=== PATIENT | male | born 1970 | race African-American/Black ===

== ENCOUNTER 2018-01-11 07:30 | Outpatient (CLI) | payer BC ==
[2018-01-11] MEDS ORDERED: Iopamidol 370 76% 100 ML VIAL ONE (09:00)
--- NOTE | 2018-01-11 09:54 | CT ---
CT OF THE CHEST WITH IV CONTRAST CT OF THE ABDOMEN WITH IV CONTRAST CT OF THE PELVIS WITH IV CONTRAST: Provided Clinical History: Carcinoma of colon. FINDINGS: No comparisons. The heart, pericardium, and great vessels demonstrate an unremarkable CT appearance. There is no evidence for thoracic lymph node enlargement. The airway appears patent and of normal eunice iber. The lungs are free of suspicious opacity. There is no pleural fluid or pneumothorax apparent. The liver, spleen, pancreas, kidneys, and adrenal glands demonstrate an unremarkable CT appearance. There is a conspicuous fat containing umbilical hernia. There is mass like soft tissue density seen within the region of the cecum, presumably reflecting the known carcinoma. There is a small lymph node at the medial margin of this portion of the colon. It i s not enlarge by size criteria but is suspicious by location. There is no bowel dilatation, inflammatory fat stranding or free air apparent. There is a very small amount of free intraperitoneal fluid, primarily within the pelvic cul-de-sac. Vascular calcifications are noted. The osseous structures demonstrate no concerning osteoblastic or osteolytic lesions. IMPRESSION: 1. Focal mass like soft tissue density within the cecum reflecting the known colonic carcinoma. Adjac ent mesenteric lymph node may reflect lymph node disease in this region. No evidence for metastasis. 2. Small amount of free intraperitoneal fluid, etiology and significance of which are uncertain. POS: [facility]
== END 2018-01-11 07:31 | disposition home or self-care (01) ==
LOC: SCSCT 07:30
PROVIDERS: ATTEND Internal Medicine Medical Oncology
DX: C18.9 Malignant neoplasm of colon, unspecified (principal); C61 Malignant neoplasm of prostate; R05 Cough
CPT/HCPCS: 71260; 74177

== ENCOUNTER 2018-01-12 13:15 | Inpatient (IN) | payer BC ==
[2018-01-12 13:40] VITALS: BMI 33.0
[2018-01-16] MEDS ORDERED: Lidocaine 1% (PF) 30 ML VIAL ONE (11:52)
[2018-01-16] MEDS ORDERED: Midazolam HCl 2 mg/2 ml Vial ONE (11:52)
[2018-01-16] MEDS ORDERED: Fentanyl 100 MCG/2 ML VIAL ONE ×2 (11:52→11:56)
[2018-01-16] MEDS ORDERED: HYDROmorphone 0.5 MG/0.5 ML SYRINGE ONE (11:57)
[2018-01-16] MEDS ORDERED: Dexamethasone 4 mg/ml Vial ONE (11:57)
[2018-01-16] MEDS ORDERED: cefOXitin 2 GM, Syringe 1 ML in Sterile Water 10 ML SLOW IVP SCH (12:00)
[2018-01-16] MEDS ORDERED: Ketorolac Tromethamine 30 MG/ML VIAL IVP SCH (12:00)
[2018-01-16] MEDS ORDERED: Acetaminophen 1,000 MG in Premix Bag 1 BAG IVPB SCH (12:00)
[2018-01-16] MEDS ORDERED: Ketorolac Tromethamine 30 MG/ML VIAL ONE (12:01)
[2018-01-16] MEDS ORDERED: Lidocaine 1% w/Epinephrine 1:100K 30 ML VIAL ONE (13:11)
[2018-01-16] MEDS ORDERED: Indocyanine Green 25 MG/10 ML VIAL ONE (13:11)
[2018-01-16] MEDS ORDERED: cefOXitin 2 GM VIAL ONE (14:57)
[2018-01-16] MEDS ORDERED: Bupivacaine HCl 0.5%/Epinephrine 1:200,000/PF 30 ml Vial ONE (15:29)
[2018-01-16] MEDS ORDERED: Ondansetron HCl/PF 4 MG/2 ML Vial ONE (16:04)
[2018-01-16] MEDS ORDERED: Glycopyrrolate 0.2 MG/ML 5 ML SYRINGE ONE (16:04)
[2018-01-16] MEDS ORDERED: PROPOFOL 200 MG/20 ML VIAL ONE (16:04)
[2018-01-16] MEDS ORDERED: Labetalol 100 MG/20 ML MDV ONE (16:04)
[2018-01-16] MEDS ORDERED: Dexamethasone 20 MG/5 ML VIAL ONE (16:04)
[2018-01-16] MEDS ORDERED: Lidocaine 1% PF 5 ML VIAL ONE (16:04)
[2018-01-16] MEDS ORDERED: Ondansetron HCl/PF 4 MG/2 ML Vial IVP PRN ×2 (16:58→17:34)
[2018-01-16] MEDS ORDERED: Promethazine HCl 25 MG/ML VIAL SLOW IVP PRN (16:58)
[2018-01-16] MEDS ORDERED: Morphine Sulfate 2 MG/ML SYRINGE SLOW IVP PRN (16:58)
[2018-01-16] MEDS ORDERED: Promethazine HCl 25 MG/ML VIAL IM PRN ×2 (16:58→17:34)
[2018-01-16] MEDS ORDERED: HYDROmorphone 2 MG/ML VIAL SLOW IVP PRN (16:58)
[2018-01-16] MEDS ORDERED: D5 1/2 NS w/20 mEq KCL 1,000 ML ONE (17:06)
[2018-01-16] MEDS ORDERED: hydrALAZINE 20 MG/ML VIAL SLOW IVP PRN (17:34)
[2018-01-16] MEDS: D5 1/2 NS w/20 mEq KCL 1,000 ML IV SCH (17:58)
[2018-01-16] MEDS: Ketorolac Tromethamine 30 MG/ML VIAL IVP SCH ×2 (18:26→23:37)
[2018-01-16] MEDS: Acetaminophen 1,000 MG in Premix Bag 1 BAG IVPB SCH ×2 (18:26→23:36)
[2018-01-16] MEDS: Famotidine/PF 20 mg/2ml Vial SLOW IVP SCH (20:57)
[2018-01-16] MEDS: Famotidine 20 MG TAB PO SCH (20:59)
--- NOTE | 2018-01-17 01:48 | OP ---
DATE OF OPERATION: 01/16/2018 PREOPERATIVE DIAGNOSIS: Right colon cancer. POSTOPERATIVE DIAGNOSIS: Right colon cancer. OPERATION PERFORMED: Robotic assisted right hemicolectomy. SURGEON: Aman Webb M.D. ANESTHESIA: General endotracheal. INDICATIONS: The patient is a 47-year-old black male. He was recently found to be anemic. Colonosc opy was performed revealing an invasive adenocarcinoma within his cecum. I recommended a robotic ass isted right hemicolectomy. He has undergone outpatient mechanical and antibiotic bowel prep. DESCRIPTION OF OPERATION: Informed consent was obtained. The patient was taken to the operating ivonne m where general endotracheal anesthesia was obtained with the patient in supine position. [place] cath eter was placed, abdomen was prepped with ChloraPrep and draped in sterile fashion. Throughout the case, he was maintained at a temperature in excess of 36 degrees centigrade. Local anesthetic was infiltrated and a left periumbilical incision was created through which a Veress needle was passed into the peritoneal cavity. Pneumoperitoneum was established using carbon dioxide up to a pressure of 15 mmHg. An 11 mm trocar port site was passed through this same incision. [place] roscopic camera was passed through this port. The patient was noted to have adhesions to his anterio r abdominal wall at the site of his prior prostate surgery incision and his umbilical hernia. A 12 mm left subcostal port was placed as well as an 8 mm left suprapubic port. Finally, an 11 mm le ft upper lateral assist port was placed. After these ports were in, attention was turned to the adhesions. These were easily taken down with sharp dissection and electrocautery. The patient was rotated to his left the bed was flexed with his hips up. The robot was then docked t o the ports and the camera and the operation was continued from the robotic console. The abdomen was inspected. There was no evidence of metastatic disease that was visible anywhere wit hin the abdominal cavity were involving the liver. The cecum was grasped and tented inferiorly. The ileocolic pedicle was clearly identified. The mesentery inferior to that was scored with electrocau stepan and blunt dissection was carried laterally, the colonic mesentery from the retroperit oneum using almost entirely blunt dissection. When dissection had reached the abdominal wall, attent ion was turned to the ileocolic vessels. These were each divided using the vessel sealer with no blo od loss. Dissection was then continued superiorly up towards the transverse colon. The duodenum was identifie d and swept posteriorly and kept free from harm. Dissection was then carried directly up to the prox imal segment of the transverse colon. The segment of the colon was dissected circumferentially and d ivided with 2 fires of the blue stapler load. Attention was then turned inferiorly. The mesenteric dissection was continued down onto the small magda wel, which was also dissected circumferentially and divided with another firing of the blue load of t he stapler. The small bowel was easily able to be passed up to the level of the divided transverse colon. There were no inferior adhesions. The colonic mobilization was completed by incising the lateral colonic a ttachments and dividing the remainder of the hepatic flexure. The right colon was then passed up abo ve the liver so that was out of the way. The small bowel and the transverse colon rested against each other in an isoperistaltic fashion. A s donny stay suture of 3-0 Vicryl was placed several centimeters from the end of the divided colon and at the end of the small bowel. An enterotomy was created in both the colon and the small bowel and t he stapler was passed through these openings and fired so as to create the anastomosis. The anastomo sis was widely patent and of adequate size. The stay suture was withdrawn through the anterior abdom inal wall using a GraNee needle and used to tent open the common enterotomy to facilitate closure. T he opening was closed with a running suture of 3-0 Stratafix in a to and fro fashion. The Vicryl sta y suture was then secured in place as well. The area of resection was inspected and found to be hemostatic. The area was irrigated and all irrig ant was aspirated. There had been no spillage of any bowel contents intra-abdominal. The colon was grasped with a grasper, so as to be able to be easily mobilized inferiorly. The fascial defect at th e 3 port sites were closed with 0 Vicryl suture using a GraNee needle. Attention was then turned to the inferior port site that was suprapubic port. Incision was enlarged to about 4 cm in length. Dissection was carried down to the fascia which was opened transversely on both anterior and posterior aspects of the rectus muscles. The Mg wound retractor was passed thr ough the opening and the resected segment of colon was delivered up through the Mg wound retracto r. Due to the size of the resected colon and the tumor, it was difficult to pass through this and I had to enlarge the fascial opening on a couple of occasions to allow it to pass through an appropriat e fashion. When it was delivered externally, then the Mg wound retractor was removed. The abdomen was cleaned of all laparoscopic instruments. New gown and gloves were put on. The abdom en was redraped. The posterior fascia was closed with a running suture of #1 PDS. The wound was the n copiously irrigated with about 2 liters of irrigant. This was also used to wash out the rest of th e abdominal wall and the other port sites. The anterior fascia was then closed with another suture o f #1 PDS. The remainder of the wound closed in layers with 3-0 and 4-0 Monocryl and Dermabond was pl aced externally. There were no complications. Blood loss was negligible. The patient tolerated the procedure well and was taken to recovery room in stable condition.
[2018-01-17] MEDS: D5 1/2 NS w/20 mEq KCL 1,000 ML IV SCH ×4 (01:51→23:53)
[2018-01-17] MEDS: Acetaminophen 1,000 MG in Premix Bag 1 BAG IVPB SCH ×2 (05:57→11:21)
[2018-01-17] MEDS: Ketorolac Tromethamine 30 MG/ML VIAL IVP SCH ×4 (05:58→23:54)
[2018-01-17 06:13] LABS: #Lymphocytes 1.1 thou/uL (1.20-3.40); #Monocytes 0.5 thou/uL (0.11-0.59); #Neutrophils 8.5 thou/uL (1.40-6.50); %Basophils 0.1 % (0.0-1.0); %Eosinophils 0.1 % (0.0-10.0); %Lymphocytes 10.5 % (21.0-51.0); %Monocytes 5.4 % (0.0-10.0); Hemoglobin 8.8 g/dL (14.0-18.0); Mean Corpuscular HGB CONC 30.2 g/dL (32.0-36.0); Mean Corpuscular Hemoglobin 22.2 pg (27.0-31.0); Mean Corpuscular Volume 73.6 fl (80.0-94.0); Platelet Count 304 thou/uL (130-400); RBC Distribution Width 15.6 % (11.5-14.5); Red Blood Cell (RBC) Count 3.97 mill/uL (4.70-6.10); White Blood Cell (WBC) Count 10.1 thou/uL (4.8-10.8)
[2018-01-17 06:19] LABS: Anion Gap 11 mmol/L (10-20); BUN (Urea Nitrogen) 10 mg/dL (8.9-20.6); Calc. Creatinine Clearance 135 mL/min (70-130); Calcium 8.6 mg/dL (7.8-10.44); Carbon Dioxide 22 mmol/L (22-29); Chloride 109 mmol/L (98-107); Estimated GFR-MDRD 90; Glucose 162 mg/dL (70-105); Potassium 4.5 mmol/L (3.5-5.1); Sodium 137 mmol/L (136-145)
[2018-01-17] MEDS: Enoxaparin Sodium 40 MG/0.4 ML SYRINGE SC SCH (08:45)
[2018-01-17] MEDS: Famotidine/PF 20 mg/2ml Vial SLOW IVP SCH ×2 (08:45→21:00)
[2018-01-17] MEDS: Famotidine 20 MG TAB PO SCH ×2 (08:49→20:38)
[2018-01-17] MEDS ORDERED: HYDROcodone/Acetaminophen 7.5/325 mg Tablet PO PRN ×2 (12:45)
[2018-01-18] MEDS: Ketorolac Tromethamine 30 MG/ML VIAL IVP SCH (05:49)
[2018-01-18 08:26] VITALS: BP 127/78; TEMP 99.1
[2018-01-18] MEDS: Famotidine 20 MG TAB PO SCH (08:37)
[2018-01-18] MEDS: Enoxaparin Sodium 40 MG/0.4 ML SYRINGE SC SCH (08:38)
[2018-01-18] MEDS: Famotidine/PF 20 mg/2ml Vial SLOW IVP SCH (08:39)
[2018-01-18] MEDS: D5 1/2 NS w/20 mEq KCL 1,000 ML IV SCH (08:39)
--- NOTE | 2018-01-18 13:05 | DIS ---
DATE OF ADMISSION: 01/16/2018 DATE OF DISCHARGE: 01/18/2018 ADMISSION DIAGNOSIS: Right colon cancer. DISCHARGE DIAGNOSIS: Right colon cancer. OPERATION PERFORMED: Robotic-assisted right hemicolectomy. ADMISSION HISTORY: Patient is a 47-year-old black male. He was found to be anemic and recent colono scopy revealed a malignancy within his cecum. He had a CT scan that revealed no evidence of distant metastatic disease and a CEA level was normal at 1.5. He is brought to the operating at this time fo r definitive resection. HOSPITAL COURSE: Patient underwent uneventful surgery on the date of admission. He had a tap block placed by Anesthesia. He has had minimal discomfort during his hospitalization. He never required a ny intravenous narcotics. He has tolerated his clear liquid diet yesterday and full liquid diet thus far today. He has had flatus and a bowel movement. His abdominal exam is benign. He has good acti ve bowel sounds. He has been afebrile with normal vital signs. He is felt to be stable for discharg e home at this time. He is discharged home today with instructions to follow up with myself in 10 to 14 days. He was give n dietary and activity instructions. He was given a discharge prescription for Reynolds to use as neces ioana. Pathology is pending currently in regards to his resection specimen.
== END 2018-01-18 11:23 | disposition home or self-care (01) | DRG 331 ==
LOC: SURG A 01-16 10:56 → SURG B 01-16 17:31
PROVIDERS: ADMIT Specialist; ATTEND Specialist
PROC: 0DTF4ZZ Resection of Right Large Intestine, Percutaneous Endoscopic Approach (ICD-10-PCS; principal; 2018-01-16)
DX: C18.0 Malignant neoplasm of cecum (principal); D64.9 Anemia, unspecified; Z85.46 Personal history of malignant neoplasm of prostate; Z85.72 Personal history of non-Hodgkin lymphomas; Z85.6 Personal history of leukemia
CPT/HCPCS: 36415; 36416; 80048; 85025; 88309; A4216; J0131; J0360; J0670; J0694; J1100; J1170; J1885; J2001; J2250; J2405; J2704; J3010; S0028

== ENCOUNTER 2018-01-12 13:16 | Outpatient (CLI) | payer BC ==
[2018-01-12 16:13] LABS: Hemoglobin A1c 5.4 % (4.0-6.0)
== END 2018-01-12 13:17 | disposition home or self-care (01) ==
LOC: LABBT 13:16
PROVIDERS: ATTEND Specialist
DX: Z01.812 Encounter for preprocedural laboratory examination (principal); C18.0 Malignant neoplasm of cecum
CPT/HCPCS: 83036; 93005; 93010

== ENCOUNTER 2018-01-19 14:25 | Inpatient (IN) | payer BC ==
[2018-01-19] MEDS ORDERED: ISOVUE-370 76%-LOCM 1 ML ONE (14:29)
[2018-01-19] MEDS ORDERED: Morphine 2 mg/2ml in 0.9% NaCl PF SYRINGE IVP PRN (15:08)
[2018-01-19] MEDS: Ondansetron HCl/PF 4 MG/2 ML Vial IVP PRN ×2 (15:20→22:06)
[2018-01-19] MEDS: Sodium Chloride 0.9% 1,000 ML IV SCH ×2 (15:20→20:31)
[2018-01-19 15:30] LABS: #Eosinphils 0.2 thou/uL (0.0-0.7); #Monocytes 0.9 thou/uL (0.11-0.59); #Neutrophils 11.5 thou/uL (1.40-6.50); %Basophils 0.1 % (0.0-1.0); %Eosinophils 1.6 % (0.0-10.0); %Lymphocytes 7.6 % (21.0-51.0); %Monocytes 6.4 % (0.0-10.0); %Neutrophils 84.3 % (42.0-75.0); Hemoglobin 10.8 g/dL (14.0-18.0); Mean Corpuscular HGB CONC 30.6 g/dL (32.0-36.0); Mean Corpuscular Hemoglobin 22.2 pg (27.0-31.0); Mean Corpuscular Volume 72.7 fl (80.0-94.0); Mean Platelet Volume 8.4 fL (7.4-10.4); Platelet Count 328 thou/uL (130-400); RBC Distribution Width 15.1 % (11.5-14.5); Red Blood Cell (RBC) Count 4.86 mill/uL (4.70-6.10); White Blood Cell (WBC) Count 13.7 thou/uL (4.8-10.8)
[2018-01-19 15:49] LABS: ALT (SGPT) 14 U/L (8-55); AST (SGOT) 12 U/L (5-34); Albumin 3.9 g/dL (3.5-5.0); Alkaline Phosphatase 67 U/L (40-150); Anion Gap 14 mmol/L (10-20); BUN (Urea Nitrogen) 11 mg/dL (8.9-20.6); Bilirubin, Total 0.7 mg/dL (0.2-1.2); Calc. Creatinine Clearance 0 mL/min (70-130); Calcium 9.2 mg/dL (7.8-10.44); Carbon Dioxide 23 mmol/L (22-29); Chloride 106 mmol/L (98-107); Estimated GFR-MDRD Greater than 90; Globulin 2.8 g/dL (2.4-3.5); Glucose 96 mg/dL (70-105); Protein, Total 6.7 g/dL (6.0-8.3); Sodium 139 mmol/L (136-145)
[2018-01-19] MEDS ORDERED: Sodium Chloride 0.9% 1,000 ML IV SCH (18:45)
--- NOTE | 2018-01-19 20:17 | CT ---
CT ABDOMEN AND PELVIS WITH IV CONTRAST 01/19/18 HISTORY: Post colon resection on Monday secondary to colon cancer. Patient now has nausea and chills. History of prostate cancer as well as history of prostatectomy. COMPARISON: 01/11/18 FINDINGS: Calcified right hilar and mediastinal lymph nodes are again present. There is atelectasis present at the right lung base with calcified granuloma also present at the right lung base. There is bibasilar atelectasis. There is a small amount of intraperitoneal free fluid within the abdomen and pelvis. There are postsurgical changes related to resection of portion of the cecum and ascending colon. Ther e are dilated loops of small bowel measuring up to 3.1 cm in diameter which may be related to ileus o r partial small bowel obstruction. There is no abrupt transition zone present. There is no fluid collection seen to suggest an abscess. No free intraperitoneal gas is visualized. There is prominent distention of the stomach which is filled with contrast. The liver, pancreas, bilateral adrenal glands, kidneys, and partially distended urinary bladder demon strate a normal CT appearance. Calcified granuloma is seen in the spleen. There is a fat containing umbilical hernia. Fluid is seen within the hernia, but no loop of bowel ext ends into this region. There is minimal edema surrounding the umbilicus. Small amount of subcutaneous emphysema is seen about the anterior and anterolateral aspect of the pel vis which is probably related to recent surgery. A few punctate foci of gas are seen in anterior aspe ct of the pelvis between the rectus abdominis musculature which also could be related to recent posts urgical changes. No additional areas of free intraperitoneal gas are appreciated. There is minimal st randing adjacent to the region of postoperative changes. Only a small amount of fluid adjacent to th e anastomotic suture line containing small bowel and colon in the right upper quadrant. No other inte rval change from the prior exam. Prostate gland is not seen related to history of prostatectomy. Ther e is a slightly increased density area within the lower pelvis which is in the region of the fluid no nav on the prior exam and this slight increase in density could be related to recent postsurgical dejan nge. IMPRESSION: 1. Interval postsurgical changes related to resection of the ascending colon. Anastomosis is pre sent in the right upper quadrant. There is adjacent inflammatory changes present. Small amount of camelia e fluid is seen within the abdomen and pelvis. While anastomotic leak could not be entirely excluded, findings are likely attributable to the recent postsurgical changes. A few punctate foci of gas are seen within the lower pelvis which is also likely postsurgical. If there is concern for anastomotic l eak, followup evaluation can be performed. 2. Dilated loops of small bowel without an abrupt transition zone seen. Findings may be related to postoperative ileus. Continued followup is recommended to exclude partial small bowel obstruction. 3. Prominent fat containing umbilical hernia with fluid seen within the region of the hernia. 4. Bibasilar atelectasis. 5. Above findings discussed with Dr. Webb on 01/19/18 at 1756 hours. POS: [facility]
[2018-01-19] MEDS: Famotidine/PF 20 mg/2ml Vial IVPB SCH (20:26)
--- NOTE | 2018-01-19 23:14 | CT ---
NONCONTRAST CT ABDOMEN AND PELVIS 01/19/18 HISTORY: Post colectomy secondary to colon cancer. Patient complains of nausea and chills. Followup evaluation . COMPARISON: Postcontrast study on 01/19/18 at 1740 hours. Again noted is bibasilar atelectasis. Small amount of intraperitoneal free fluid is again seen in the abdomen and pelvis. Contrast is now seen in the renal collecting systems and in the urinary bladder. There is persistent distention of the stomach which is again filled with contrast with opacification of the most proximal loops of small bowel. There has been no significant interval progression in cont rast into the dilated fluid filled loops of small bowel further distally and certainly no contrast s een in the region of the small bowel colonic anastomosis in the right upper quadrant. There has been no interval change from the prior exam. IMPRESSION: 1. Dilated loops of small bowel without significant progression in contrast into more distal loo ps of small bowel. Findings again may be related to postoperative ileus, although partial small bowel obstruction could not be entirely excluded. 2. Small bowel colonic anastomosis in the right upper quadrant related to resection of the ascen ding colon. There is a small amount of free fluid in the abdomen and pelvis. Minimal stranding adjace nt to the anastomosis. While an anastomotic leak could not be entirely excluded, these findings could be postoperative in origin as there is only a small amount of free fluid. No gas is seen immediately adjacent to the region of the anastomosis. 3. Punctate focus of gas in the most anterior lower pelvis also seen on the prior study which co uld be explained by recent postoperative changes as well. POS: [facility]
--- NOTE | 2018-01-19 23:21 | HP ---
CHIEF COMPLAINT: Nausea, tachycardia. HISTORY OF PRESENT ILLNESS: Patient is a very pleasant 47-year-old black male. He underwent a robot ic right hemicolectomy for cecal cancer on 01/16/2018. He had an uneventful surgery. He al so had an uneventful perioperative course. He never had any appreciable ileus and tolerated his diet . He was discharged home on postoperative day #2, tolerating his diet with good bowel function. He was hemodynamically stable during his 2 days in the hospital. His preoperative hemoglobin was 11 on postoperative day #1, it was 8.8. He had bowel function prior to leaving the hospital. He returned to my office today after calling with some potential concerns. He specifically notes jerry t he has had no significant pain. He is taking no prescription pain medication. He still had bowel function with bowel movement and flatus. He denies significant belching. He has tolerated liquids u neventfully. He notes that he has had nausea and "just does not feel well." His noted that he felt cool and clammy. Upon presentation in my office, he was noted to be tachycardic with a heart ra te of about 118. PAST MEDICAL HISTORY: 1. Right colon cancer, this appears to be a T2N0 lesion. 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 4. Prostate cancer. 5. Hypertension. 6. Hypercholesterolemia. PAST SURGICAL HISTORY: 1. Left knee surgery. 2. Robotic prostatectomy in 2017. CURRENT MEDICATIONS: Flonase, Protonix, Valtrex, Lotrel. ALLERGIES: NEOSPORIN (topical). PERSONAL/SOCIAL HISTORY: with 2 children. He works at the [employer]. He de nies tobacco or significant alcohol use. REVIEW OF SYSTEMS: Otherwise, unremarkable. FAMILY HISTORY: Noncontributory. PHYSICAL EXAMINATION: VITAL SIGNS: Temperature is 96.1, pulse 118, blood pressure 127/83. GENERAL: He is well-developed, well-nourished, pleasant black male. He looks more uncomfortable jerry n he did a couple of days ago. He is alert and oriented x3 and conversant. is present with him . HEAD, EYES, EARS, NOSE, AND THROAT: Unremarkable. NECK: Supple. LUNGS: Clear to auscultation. CARDIAC: Regular rate and rhythm. ABDOMEN: Appears to be mildly protuberant. All incisions are nicely healed without an expected tend erness. Bowel sounds are present, appeared to be normoactive. He has no evidence of peritonitis. P alpation in the areas of the abdomen not involved the surgical incisions reveals no evidence of perit onitis or guarding. EXTREMITIES: He has appropriate discomfort around the incision sites. ASSESSMENT: Patient is postoperative day #3 from a robotic colon resection. He does not currently h ave evidence of an anastomotic leak based on his physical examination. His tachycardia and cool skin is somewhat concerning however. It is probably erring on the side of caution, but I recommend a CT scan of abdomen and pelvis as well as laboratory evaluation. I will admit him to the hospital for hi s labs and CT scan and a course of IV fluid. If he is stable, he may only need to be in the hospital overnight, but he end up requiring repeat evaluation with either laparoscopy or laparotomy. It is p ossible that he has had some postoperative bleeding that has led to further anemia and this may be th e cause of his current symptoms as well. I have explained all this to the patient's . They unde rstand and agree to proceed with the evaluation as recommended.
[2018-01-20] MEDS: Sodium Chloride 0.9% 1,000 ML IV SCH ×2 (03:23→11:07)
[2018-01-20 05:59] LABS: #Eosinphils 0.5 thou/uL (0.0-0.7); #Lymphocytes 1.3 thou/uL (1.20-3.40); #Neutrophils 8.8 thou/uL (1.40-6.50); %Basophils 0.1 % (0.0-1.0); %Eosinophils 4.2 % (0.0-10.0); %Lymphocytes 10.9 % (21.0-51.0); %Monocytes 8.6 % (0.0-10.0); %Neutrophils 76.1 % (42.0-75.0); Hemoglobin 9.2 g/dL (14.0-18.0); Mean Corpuscular HGB CONC 29.5 g/dL (32.0-36.0); Mean Corpuscular Hemoglobin 21.6 pg (27.0-31.0); Mean Corpuscular Volume 73.2 fl (80.0-94.0); Mean Platelet Volume 9.1 fL (7.4-10.4); Platelet Count 311 thou/uL (130-400); Red Blood Cell (RBC) Count 4.24 mill/uL (4.70-6.10); White Blood Cell (WBC) Count 11.6 thou/uL (4.8-10.8)
[2018-01-20 06:19] LABS: ALT (SGPT) 10 U/L (8-55); AST (SGOT) 8 U/L (5-34); Albumin 3.2 g/dL (3.5-5.0); Alkaline Phosphatase 56 U/L (40-150); Anion Gap 11 mmol/L (10-20); BUN (Urea Nitrogen) 11 mg/dL (8.9-20.6); Bilirubin, Total 0.6 mg/dL (0.2-1.2); Calc. Creatinine Clearance 169 mL/min (70-130); Calcium 8.3 mg/dL (7.8-10.44); Carbon Dioxide 21 mmol/L (22-29); Chloride 109 mmol/L (98-107); Estimated GFR-MDRD Greater than 90; Globulin 2.4 g/dL (2.4-3.5); Glucose 100 mg/dL (70-105); Potassium 3.8 mmol/L (3.5-5.1); Protein, Total 5.6 g/dL (6.0-8.3); Sodium 137 mmol/L (136-145)
[2018-01-20] MEDS: Ondansetron HCl/PF 4 MG/2 ML Vial IVP PRN ×3 (06:32→22:45)
[2018-01-20] MEDS: Famotidine/PF 20 mg/2ml Vial IVPB SCH ×2 (08:38→20:02)
--- NOTE | 2018-01-20 09:18 | RAD ---
RADIOGRAPH ABDOMEN 2 VIEWS: DATE: 01/20/18. TIME: 8:16 a.m. HISTORY: A 47-year-old male with nausea. FINDINGS: Air fluid levels in nondilated colon, including hepatic and splenic flexures, and transverse colon. Air fluid level in centrally located prominent bowel loop, uncertain whether a loop of colon or dilat ed small intestine. Otherwise, there is a lack of small bowel gas which makes it difficult to evalua te the small intestine. No free air. No organomegaly. IMPRESSION: Nonspecific abnormal bowel gas pattern. Continued followup recommended. POS: [facility]
--- NOTE | 2018-01-20 12:07 | PRG ---
DATE OF SERVICE: 01/20/2018 Mr. Chi is feeling better today. He denies abdominal pain. He is having a little nausea. He has been afebrile overnight. Heart rate is 101. Other vital signs are normal. Urine output has not been recorded, but he states that this was normal as well. White count is 11.6, hematocrit 31. Kandis ctrolytes unremarkable. On plain film this morning it looked like the contrast was in the colon, so I have ordered repeat CT, the report is not yet back, but I do not see any evidence of leak around th e anastomosis. The fluid which was previously up around his liver, is now down in his pelvis, but I do not think that this was increased in volume. His physical exam is benign. He does not exhibit ri gidity, rebound or tenderness. He has only very mild louis-incisional tenderness which seems appropri ate. ASSESSMENT: Nausea and feeling weak. The weakness has improved after IV fluids and I think he was a little bit dehydrated since his hematocrit was higher than preoperative. I will ask the nurses to q uantify his urine output and keep him on IV antibiotics and bowel rest. I am waiting for the officia l CT report, but I think leak is clinically quite unlikely and that he most likely has an ileus, whic h could be managed with bowel rest and observation.
--- NOTE | 2018-01-20 12:51 | CT ---
CT OF THE ABDOMEN AND PELVIS WITHOUT CONTRAST: COMPARISON: 01/19/18. HISTORY: The patient had recent colon resection for colon cancer. The patient complains of nausea and chills. TECHNIQUE: Multiple contiguous axial images were obtained in a CT of the abdomen and pelvis without contrast. P .o. contrast was administered. Coronal reformats were performed. FINDINGS: Hyperdensity in the gallbladder likely represents vicarious excretion of contrast into the gallbladde r. There is also subtle hyperdensity in both renal collecting systems likely representing contrast f rom previous examination. No obvious renal calcifications are seen. No hydronephrosis is seen. No focal liver lesions are seen. The adrenal glands and pancreas are unremarkable, although evaluation is limited without IV contrast. A calcification in the spleen is from prior granulomatous disease. A small amount of free fluid is seen in the abdomen and pelvis. No free air is identified. There is an anastomotic staple line in the right colon with surrounding stranding which is likely postsurgica l in nature. Contrast passes through the small bowel loops into the right colon. The small bowel lo ops are mildly dilated in the left abdomen. No abdominal or pelvic lymphadenopathy are seen. Atherosclerotic calcifications are seen in the aort a. Degenerative changes are seen in the spine. There is a small right pleural effusion with adjacent at electasis. There is a 3.7 cm fat-containing umbilical hernia. A few bubbles of air are seen in the subcutaneous soft tissues, likely from prior surgery. IMPRESSION: 1. Mildly dilated loops of small bowel may be secondary to postoperative ileus. 2. A small amount of free fluid in the abdomen is likely postsurgical in nature. 3. Umbilical hernia. POS: [facility]
[2018-01-20] MEDS: D5 1/2 NS w/20 mEq KCL 1,000 ML IV SCH (18:17)
[2018-01-21] MEDS: D5 1/2 NS w/20 mEq KCL 1,000 ML IV SCH ×3 (01:43→17:18)
[2018-01-21 05:39] LABS: ALT (SGPT) 10 U/L (8-55); AST (SGOT) 8 U/L (5-34); Albumin 3.4 g/dL (3.5-5.0); Alkaline Phosphatase 58 U/L (40-150); Anion Gap 9 mmol/L (10-20); BUN (Urea Nitrogen) 7 mg/dL (8.9-20.6); Bilirubin, Total 0.5 mg/dL (0.2-1.2); Calc. Creatinine Clearance 154 mL/min (70-130); Calcium 8.6 mg/dL (7.8-10.44); Carbon Dioxide 22 mmol/L (22-29); Chloride 108 mmol/L (98-107); Estimated GFR-MDRD Greater than 90; Globulin 2.6 g/dL (2.4-3.5); Glucose 126 mg/dL (70-105); Magnesium 2.1 mg/dL (1.6-2.6); Phosphorus 2.7 mg/dL (2.3-4.7); Potassium 4.1 mmol/L (3.5-5.1); Sodium 135 mmol/L (136-145)
[2018-01-21 06:14] LABS: #Basophils 0.1 thou/uL (0.0-0.2); #Eosinphils 0.6 thou/uL (0.0-0.7); #Lymphocytes 1.9 thou/uL (1.20-3.40); #Monocytes 0.9 thou/uL (0.11-0.59); #Neutrophils 7.2 thou/uL (1.40-6.50); %Basophils 0.5 % (0.0-1.0); %Eosinophils 5.4 % (0.0-10.0); %Lymphocytes 17.9 % (21.0-51.0); %Monocytes 8.7 % (0.0-10.0); %Neutrophils 67.5 % (42.0-75.0); Elliptocytes SLIGHT = 2-5 cells (100X) (0-1/hpf); Hemoglobin 9.4 g/dL (14.0-18.0); MDiff Complete? YES; Mean Corpuscular HGB CONC 30.9 g/dL (32.0-36.0); Mean Corpuscular Hemoglobin 22.1 pg (27.0-31.0); Mean Corpuscular Volume 71.4 fl (80.0-94.0); Mean Platelet Volume 8.5 fL (7.4-10.4); Platelet Count 316 thou/uL (130-400); RBC Distribution Width 14.8 % (11.5-14.5); Red Blood Cell (RBC) Count 4.23 mill/uL (4.70-6.10); White Blood Cell (WBC) Count 10.6 thou/uL (4.8-10.8)
[2018-01-21] MEDS: Famotidine/PF 20 mg/2ml Vial IVPB SCH ×2 (08:37→20:48)
--- NOTE | 2018-01-21 10:56 | RAD ---
TWO VIEWS FROM THE ABDOMEN: INDICATION: Ileus. COMPARISON: Prior exam dated 01/20/18. FINDINGS: Gas-filled loops of small bowel with differential air fluid levels largely stable, suspicious for eit her mild partial small bowel obstruction versus localized ileum. IMPRESSION: Stable exam. POS: [facility]
--- NOTE | 2018-01-21 15:07 | PRG ---
DATE OF SERVICE: 01/21/2018 SUBJECTIVE: Mr. Chi states that he is feeling better today. He has no abdominal pain at all a nd has not required anything for nausea in 12 hours. He is not really hungry, but he has been passin g gas and having liquid bowel movements. He has been afebrile. His vital signs are normal. His whi te count is down to normal at 10.6 and his electrolytes are unremarkable. His abdomen is still diste nded and somewhat tympanitic and I do not really appreciate bowel sounds. His incisions are well hea led. KUB still showed some mildly dilated loops of small bowel with air fluid levels. ASSESSMENT AND PLAN: Postoperative ileus. His dehydration has gotten better. He is not having any lightheadedness or weakness, but his ileus has been slowly resolved. I am going to let him have just sips of clear liquids, but not a full tray. If he gets nauseated, he is to return to n.p.o. status. We did consider and discuss putting down an NG tube, but since he feels like he is improving, we ar e holding off on this for now. If nausea becomes more of an issue, then we will place this.
[2018-01-21] MEDS: Ondansetron HCl/PF 4 MG/2 ML Vial IVP PRN (20:48)
[2018-01-21] MEDS: Acetaminophen 325 MG TAB PO PRN (23:27)
[2018-01-22] MEDS: D5 1/2 NS w/20 mEq KCL 1,000 ML IV SCH ×3 (02:01→17:28)
[2018-01-22 05:36] LABS: #Eosinphils 0.3 thou/uL (0.0-0.7); #Lymphocytes 1.3 thou/uL (1.20-3.40); #Neutrophils 6.9 thou/uL (1.40-6.50); %Basophils 0.3 % (0.0-1.0); %Eosinophils 2.9 % (0.0-10.0); %Lymphocytes 13.4 % (21.0-51.0); %Monocytes 10.2 % (0.0-10.0); %Neutrophils 73.2 % (42.0-75.0); Hemoglobin 8.7 g/dL (14.0-18.0); Mean Corpuscular Volume 71.1 fl (80.0-94.0); Mean Platelet Volume 8.9 fL (7.4-10.4); Platelet Count 310 thou/uL (130-400); RBC Distribution Width 14.8 % (11.5-14.5); Red Blood Cell (RBC) Count 3.94 mill/uL (4.70-6.10); White Blood Cell (WBC) Count 9.4 thou/uL (4.8-10.8)
[2018-01-22 06:06] LABS: Anion Gap 9 mmol/L (10-20); BUN (Urea Nitrogen) 4 mg/dL (8.9-20.6); Calc. Creatinine Clearance 165 mL/min (70-130); Calcium 8.6 mg/dL (7.8-10.44); Carbon Dioxide 22 mmol/L (22-29); Chloride 107 mmol/L (98-107); Estimated GFR-MDRD Greater than 90; Glucose 116 mg/dL (70-105); Sodium 134 mmol/L (136-145)
[2018-01-22] MEDS: Famotidine/PF 20 mg/2ml Vial IVPB SCH ×2 (08:25→21:36)
--- NOTE | 2018-01-22 09:27 | RAD ---
TWO VIEW ABDOMEN: Supine and upright views obtained. FINDINGS: There continue to be gas-filled dilated loops of small bowel in the mid abdomen suggesting small memo l obstruction. No free air or mass effect identified. Rounded calcific density overlies the left mi d abdomen. Radiopaque suture overlies the right mid abdomen. IMPRESSION: Gas-filled dilated loops of small bowel suggest small bowel obstruction. POS: [facility]
--- NOTE | 2018-01-22 14:22 | PQF ---
MERLYN HACKETT JUNIOR, MICHAEL W MD [id number] SURG B- [id number] CLINICAL DOCUMENTATION IMPROVEMENT CLARIFICATION FORM: ICD-10 Updated PLEASE DO AN ADDENDUM TO THE PROGRESS NOTE WITH ANY DOCUMENTATION UPDATES OR ADDITIONS AND CARRY THROUGH TO DC SUMMARY. THANK YOU. DATE: 01-22-18 ATTN: DR. ODOM Please exercise your independent, professional judgment in responding to the clarification form. Clinical indicators are provided on the bottom of this form for your review Please check appropriate box(s): [ x ] Ileus related to recent surgery - Post-operative complication [ ] Ileus NOT related to recent surgery - NOT Post-operative complication [ x ] Other diagnosis - _diarrhea of uncertain etiology [ ] Unable to determine CLINICAL INDICATORS - SIGNS / SYMPTOMS / LABS H&P: NAUSEA - UNEVENTFUL PERIOPERATIVE COURSE. NEVER HAD ANY APPRECIABLE ILEUS AND TOLERATED DIET W/ GOOD BOWEL FUNCTION PN 3-3: LITTLE BIT DEHYDRATED PN 3-4: POSTOPERATIVE ILEUS 3-[address] @ [address] ABD: SMALL AMOUNT OF FREE FLUID WITHIN ABD AND PELVIS; DILATED LOOPS OF SMALL BOWEL LIKELY R/T POSTOPERATIVE ILEUS RISK FACTORS H&P: S/P HEMICOLECTOMY 01-16-18 PN 3-3: LITTLE BIT DEHYDRATED TREATMENT: CT ABD X 3 ABD X-RAY X 3 MAR: IVF BOLUS 3-2 IVF 3-3 / 3-4 / -5 THANK YOU, KIARA (This form is maintained as a part of the permanent medical record) 2014 [employer]. All Rights Reserved Kiara Peterson RN, BS [email or web address] [facility]
--- NOTE | 2018-01-22 14:26 | PRG ---
DATE OF SERVICE: 01/22/2018 SUBJECTIVE: Mr. Chi is postoperative day #6 from a robotic right hemicolectomy. He was readmi tted to the hospital on postoperative day 3 with findings that appeared consistent with an ileus. Al though he initially had an elevated white blood cell count this normalized without antibiotic treatme nt. His hemoglobin at time of representation was 10.8 and this has leveled off at 8.7 today. His ite blood cell count is 9.4 today with an unremarkable differential. He notes that he feels much better, but still does not have much of an appetite. He is having interm ittent loose/watery bowel movements. He is ambulating well. He denies any narcotic pain medication. He has been on no intravenous antibiotics during his hospitalization. He denies any pain. PHYSICAL EXAMINATION: VITAL SIGNS: He is afebrile. His current temperature is 98.9. His temperature did go up to 100.4 l ast night. His pulse is regular in the 90s, currently 94. Blood pressure is within normal limits at 125/76. (He has not taken his blood pressure medication). LUNGS: His lungs are clear to auscultation. ABDOMEN: Soft and nontender. Incisions are all nicely healed with minimal tenderness. He unfortuna tely has scant bowel sounds at this time. ASSESSMENT AND PLAN: The patient appears to have an adynamic ileus and I am uncertain of what etiolo gy. Since he is having some diarrhea I will send stool specimen for Clostridium difficile to rule th at out as a source. His electrolytes are within normal limits. His narcotic use has been none for t he past couple of days so that cannot be the contributing source. He does not appear to have an intr a-abdominal infection that would be the source. For right now, he requires ongoing support with [facility]ERO[facility] broderick, awaiting resolution of the current situation. I will be out of town for the next [address] Gibson will be covering him for me. I had a long conversation with Mr. Chi and his regarding this current issue as well as the results of h is surgery and his status in regards to his colon cancer.
[2018-01-22] MEDS: Acetaminophen 325 MG TAB PO PRN (18:27)
[2018-01-23] MEDS: Ondansetron HCl/PF 4 MG/2 ML Vial IVP PRN (01:21)
[2018-01-23] MEDS: D5 1/2 NS w/20 mEq KCL 1,000 ML IV SCH ×3 (04:31→22:07)
[2018-01-23] MEDS: Famotidine/PF 20 mg/2ml Vial IVPB SCH ×2 (08:10→21:50)
[2018-01-23] MEDS ORDERED: Saccharomyces boulardii 250 MG CAP PO SCH (14:00)
--- NOTE | 2018-01-23 14:46 | PRG ---
DATE OF SERVICE: 01/23/2018 SUBJECTIVE: Mr. Chi is feeling fine. He denies any pain. He is not having any nausea right now, although he has had a little bit in the past 24 hours. Right now, his main complaint is diarrhea. He went to the bathroom 7 times between 7:00 p.m. and 7:00 a.m. There is no blood or black color to it and his C. diff studies are negative. Vital signs are normal. PHYSICAL EXAMINATION: VITAL SIGNS: T-max 100.2, T-current 98.8. LUNGS: Clear. ABDOMEN: Still distended and tympanitic. Although bowel sounds are slightly improved, they are still hypoactive. LABORATORY DATA: Labs were not done today, but electrolytes were normal yesterday and H&H were basically stable. ASSESSMENT: Ileus, likely multifactorial. I am going to check some stool studies for other enteric pathogens and add some Florastor. He has not really had anything but some clear liquids since Monday. I am going to add some Ensure Enlive, if he tolerates this. If he has worsening nausea or fevers, then I may repeat his CT to evaluate for abscess formation and other problems. PONCHO
[2018-01-24] MEDS: Ondansetron HCl/PF 4 MG/2 ML Vial IVP PRN ×2 (01:31→18:16)
[2018-01-24] MEDS: D5 1/2 NS w/20 mEq KCL 1,000 ML IV SCH ×3 (08:21→19:41)
[2018-01-24] MEDS: Famotidine/PF 20 mg/2ml Vial IVPB SCH ×2 (08:21→19:41)
[2018-01-24] MEDS: Saccharomyces boulardii 250 MG CAP PO SCH (08:21)
[2018-01-24] MEDS: Enoxaparin Sodium 40 MG/0.4 ML SYRINGE SC SCH (19:41)
[2018-01-25] MEDS: Ondansetron HCl/PF 4 MG/2 ML Vial IVP PRN (01:07)
[2018-01-25 04:50] LABS: #Eosinphils 0.3 thou/uL (0.0-0.7); #Lymphocytes 2.3 thou/uL (1.20-3.40); #Monocytes 1.1 thou/uL (0.11-0.59); #Neutrophils 5.5 thou/uL (1.40-6.50); %Basophils 0.1 % (0.0-1.0); %Eosinophils 2.9 % (0.0-10.0); %Lymphocytes 24.8 % (21.0-51.0); %Monocytes 11.8 % (0.0-10.0); %Neutrophils 60.4 % (42.0-75.0); Hemoglobin 9.8 g/dL (14.0-18.0); Mean Corpuscular HGB CONC 30.5 g/dL (32.0-36.0); Mean Corpuscular Hemoglobin 21.7 pg (27.0-31.0); Mean Corpuscular Volume 70.9 fl (80.0-94.0); Mean Platelet Volume 8.5 fL (7.4-10.4); Platelet Count 423 thou/uL (130-400); RBC Distribution Width 15.1 % (11.5-14.5); Red Blood Cell (RBC) Count 4.54 mill/uL (4.70-6.10); White Blood Cell (WBC) Count 9.1 thou/uL (4.8-10.8)
[2018-01-25 04:55] LABS: INR-International Normal Ratio 1.2; Prothrombin Time 15.2 SEC (12.0-14.7)
[2018-01-25 05:06] LABS: ALT (SGPT) 23 U/L (8-55); AST (SGOT) 8 U/L (5-34); Albumin 3.7 g/dL (3.5-5.0); Alkaline Phosphatase 86 U/L (40-150); Anion Gap 11 mmol/L (10-20); BUN (Urea Nitrogen) 4 mg/dL (8.9-20.6); Bilirubin, Total 0.4 mg/dL (0.2-1.2); Calc. Creatinine Clearance 129 mL/min (70-130); Calcium 9.1 mg/dL (7.8-10.44); Carbon Dioxide 23 mmol/L (22-29); Cardiac Risk 6.3 (Less than 4.5); Chloride 107 mmol/L (98-107); Cholesterol 146 mg/dl (< 200 Desired); Estimated GFR-MDRD 86; Globulin 2.7 g/dL (2.4-3.5); Glucose 115 mg/dL (70-105); HDL Cholesterol 23 mg/dL (>60 Neg Risk); LDL Cholesterol, Calculated 101 mg/dL; Magnesium 1.8 mg/dL (1.6-2.6); Phosphorus 3.4 mg/dL (2.3-4.7); Potassium 4.2 mmol/L (3.5-5.1); Protein, Total 6.4 g/dL (6.0-8.3); Sodium 137 mmol/L (136-145); Triglycerides 109 mg/dL (Less than 150)
[2018-01-25] MEDS: Saccharomyces boulardii 250 MG CAP PO SCH (07:44)
[2018-01-25] MEDS: Famotidine/PF 20 mg/2ml Vial IVPB SCH ×2 (07:44→20:40)
--- NOTE | 2018-01-25 10:30 | CT ---
ABDOMEN CT WITH CONTRAST PELVIC CT WITH CONTRAST: Comparison: 01-19-18, 01-20-18 History: Status post colectomy. Colon cancer. Prostate cancer. Persistent nausea. Technique: Abdomen and pelvis CT are performed with IV and enteric contrast. Coronal reformatted imag es are submitted for interpretation. FINDINGS: ABDOMEN CT: Chronic changes lung bases. Heart size is normal. No pericardial effusion. The descending thoracic ao rta and abdominal aorta have a normal caliber. No periaortic fat stranding. Gallbladder is unremarkable. Intra and extrahepatic portal vein is patent. There is persistent but decreased perihepatic fluid. There is appropriate enhancement of the liver. T he spleen, pancreas, and adrenal glands have appropriate enhancement. Symmetric enhancement of the kidneys. No obstructive uropathy. Ventral abdominal wall hernia containing mesenteric fat in the segment of small bowel are again noted . No associated ball incarceration or obstruction. Gastric mucosa, duodenum, and multiple normal aimee mert small bowel loops are noted. No evidence of bowel obstruction. The anastomosis of the residual ri ght hemicolon and small bowel is unremarkable. Right hemicolon, left hemicolon are stable in appearan ce. Small amount of free fluid in the right paracolic gutter. No mesenteric mass, lymphadenopathy, or camelia e air. No evidence of abscess. No evidence of contrast extravasation. PELVIC CT: No mass, lymphadenopathy, free air of free fluid. Urinary bladder is unremarkable. IMPRESSION: 1. No evidence of bowel obstruction. 2. Stable post-surgical changes. 3. Stable umbilical hernia. 4. Re-demonstration of a small amount of fluid in the perihepatic space and right paracolic gutter, w hich are presumed to be post-surgical. 5. No evidence of abscess. POS: [facility]
[2018-01-25] MEDS: D5 1/2 NS w/20 mEq KCL 1,000 ML IV SCH (11:11)
[2018-01-25 15:33] VITALS: BMI 31.0
--- NOTE | 2018-01-25 18:08 | PDOC.GSPN ---
Surgery Progress Note: Subj - Subjective Narrative: Subjective: Mr. Chi is feeling better today. He has not had any nausea since last night although he is still having diarrhea. He is tolerating clear liquids. He denies pain and he feels like his distention is improving. Objective: Afebrile with normal vital signs. White count is normal and labs are unremarkable. Prealbumin is slightly low but other labs are okay. His CT looks much improved. The small bowel distention is improved and the contrast progressed to his colon in a normal period of time. There was no evidence of leak or abscess. On physical examination, his abdomen is less distended today and his bowel sounds are much better. He is nontender to palpation and his incisions are clean dry and intact. His lungs are clear and his heart is regular without murmurs. Assessment: Resolving multifactorial ileus. We are going to advance his diet. If he tolerates this, he may be discharged home tomorrow. Surgery Progress Note: Obj - Vital signs Vital signs: Vital Signs - Most Recent Temp Pulse Resp BP Pulse Ox 98.3 F 88 14 134/71 100 01/25/18 14:52 01/25/18 14:52 01/25/18 14:52 01/25/18 14:52 01/25/18 14:52 Surgery Progress Note: Results - Labs Result Diagrams: 01/25/18 04:25 01/25/18 04:25
[2018-01-25] MEDS: Enoxaparin Sodium 40 MG/0.4 ML SYRINGE SC SCH (20:40)
[2018-01-26 07:49] VITALS: BP 132/84; TEMP 98.2
[2018-01-26] MEDS: Saccharomyces boulardii 250 MG CAP PO SCH (09:57)
[2018-01-26] MEDS: Famotidine/PF 20 mg/2ml Vial IVPB SCH (09:57)
[2018-01-26] MEDS ORDERED: Loperamide HCl 2 MG CAP PO SCH ×2 (10:19→15:00)
[2018-01-26] MEDS ORDERED: Metamucil PACK PO SCH (10:20)
[2018-01-27] MEDS ORDERED: Metamucil PACK PO SCH (09:00)
--- NOTE | 2018-01-29 11:40 | DIS ---
DATE OF ADMISSION: 01/19/2018 DATE OF DISCHARGE: 01/26/2018 ADMISSION DIAGNOSIS: Tachycardia following robotic right hemicolectomy with abdominal distention. DISCHARGE DIAGNOSES: Postoperative ileus and diarrhea of uncertain etiology. ADMISSION HISTORY: Patient is a 48-year-old black male who underwent robotic right hemicolectomy for cecal cancer on 01/16. His surgery and recovery were uneventful. He was discharged to [facility] on postoperative day #2 and appeared to be doing well without any postoperative abnormalities. O n postoperative day #3, he returned to my office for an evaluation after his felt that he was co ol and clammy, and he just did not feel right. In my office, he was noted to be markedly tachycardic with a heart rate of 118. He had no peritoneal findings, but he did not look like he felt well. He was admitted to the hospital for evaluation. Laboratory studies revealed white blood cell count claudio vation of 13,000. CT scan revealed no definite evidence of anastomotic leak. There was a tiny amoun t of residual free air from his surgery and no significant abnormal fluid within the abdomen. His el ectrolytes were essentially unremarkable. HOSPITAL COURSE: After he was admitted to the hospital, there was still uncertain whether there was any evidence of an anastomotic leak. His CT scan that was initially obtained on 01/19 which repeated later in the evening on 01/19. Again, the following morning to allow the contrast time to go throug h. Upon final evaluation, there did not appear to be a leak. Otherwise, he would have been taken to the operating room for evaluation. By the next day, his white blood cell count began to normalize a nd it drop from 13 down to 11. He was afebrile and his vital signs are essentially stable and he fel t better after hydration. Over the course of the following week, he was observed on IV fluids, await ing for his ileus to resolve, so that he could resume oral intake. He had diarrhea intermittently. He underwent full diarrhea evaluation including Clostridium difficile and looking for stool culture p athogens. These were all negative. Again, for reasons that were uncertain, they took about a week f or him to normalize to where he can tolerate a diet. He had some minor diarrhea at the time of his d ischarge, but he was hemodynamically stable and did seem to require further hospitalization. He was discharged home on 01/26/2018. His diagnosis at the time of discharge was diarrhea and postoperative ileus of uncertain etiology. He will follow up with myself in 1 week to ensure that he continues to recover appropriately. He has been in no pain and required no pain medication of most of this hospi talization.
== END 2018-01-26 14:07 | disposition home or self-care (01) | DRG 394 ==
LOC: SURG B 14:25 → EEVIPCON 14:25
PROVIDERS: ADMIT Specialist; ATTEND Specialist
DX: K91.89 Other postprocedural complications and disorders of digestive system (principal); K56.7 Ileus, unspecified; R19.7 Diarrhea, unspecified; I10 Essential (primary) hypertension; E78.00 Pure hypercholesterolemia, unspecified; E86.0 Dehydration; Z85.9 Personal history of malignant neoplasm, unspecified
CPT/HCPCS: 36415; 74019; 74176; 74177; 80048; 80053; 80061; 83630; 83735; 84100; 84134; 85025; 85610; 85730; 87045; 87046; 87324; 87449; 87899; J1650; J2405; S0028

== ENCOUNTER 2018-08-10 08:31 | Outpatient (CLI) | payer BC ==
--- NOTE | 2018-08-10 09:24 | CT ---
CT HEAD: 08/10/2018 HISTORY: Imbalance and dizziness. COMPARISON: None. TECHNIQUE: Serial axial CT imaging at 5 mm intervals, from the vertex through the skull base, without contrast. FINDINGS: The visualized paranasal sinuses and mastoid air cells are well aerated. There is no displaced eloise rial fracture. There is no intracranial hemorrhage, midline shift, mass effect, or ventricular enlar gement. IMPRESSION: No intracranial hemorrhage or displaced calvarial fracture. POS: [facility]
== END 2018-08-10 08:32 | disposition home or self-care (01) ==
LOC: CT 08:31
PROVIDERS: ATTEND Physician Assistant
DX: R42 Dizziness and giddiness (principal); R26.89 Other abnormalities of gait and mobility
CPT/HCPCS: 70450

== ENCOUNTER 2019-03-28 07:05 | Outpatient (CLI) | payer BC ==
--- NOTE | 2019-03-28 08:11 | MRI ---
MRI LUMBAR SPINE NONCONTRAST: HISTORY: Low back pain, since February. COMPARISON: None FINDINGS: Appropriate T1 marrow signal intensity of the lumbar vertebra. Vertebral body height is maintained. N o fracture. Straightening of normal lumbar lordosis. No significant STIR hyperintensity to suggest vertebral body edema or ligamentous injury. Symmetric signal intensity of the paraspinal muscles. Appropriate signal intensity visualized solid organs. Conus medullaris terminates at the mid T12 level. T12-L1:Adequate disc hydration. No significant central canal stenosis or neural foraminal narrowing. L1-L2:Adequate disc hydration. No significant central canal stenosis or neural foraminal narrowing. L2-L3:Adequate disc hydration. Minimal ligament flavum thickening. No significant central canal steno sis. Neural foramina are patent. L3-L4:Mild loss of disc space height. Generalized disc bulge, ligament flavum thickening and facet hy pertrophy result in mild to moderate central canal stenosis. Mild to moderate right neural foraminal narrowing. There is a left subarticular extra dural T1 isointense and T2 hypointense lesion that measures 0.9 x 0.9 cm. There is deformity of the thecal sac at the mid L4 vertebral body level. There is mass effect and obscuration of the traversing left L4 nerve root. Inferior disc seque stration is favored. Disc material appears to extend into the left neural foramen at L4-L5. The foraminal left L4 nerve root appears to be prominent. Postcontrast imaging is recommended to ensure t hat findings are due to disc material and presumed reactive edematous change versus an intrinsic lesion of the left L4 nerve root. There is severe central canal stenosis secondary to the inferior di sc extrusion. Severe stenosis is noted at the mid L4 vertebral body level. L4-L5:Mild loss of disc space height. Broad-based disc bulge, ligament flavum thickening and facet hy pertrophy result in moderate central canal stenosis. Moderate right and severe left foraminal narrowing. L5-S1:Adequate disc hydration. No significant central canal stenosis. Mild bilateral neural foraminal narrowing. IMPRESSION: 1. Mild to moderate cervical canal stenosis at L3-L4. Inferior disc extrusion in the left subarticul ar zone with severe stenosis at the mid L4 vertebral body level. There is also obscuration of the traversing left L4 nerve root. There is severe left neural foraminal narrowing at L4-L5, likely relat ed to disc material. The foraminal left L4 nerve root appears to be prominent. Postcontrast imaging is recommended, as described above. 2. Moderate right and moderate to severe left neural foraminal narrowing at L4-L5. Moderate central canal stenosis. Transcribed Date/Time: 03/28/2019 8:22 AM
== END 2019-03-28 07:06 | disposition home or self-care (01) ==
LOC: SCSMRI 07:05
PROVIDERS: ATTEND Family Medicine
DX: M54.16 Radiculopathy, lumbar region (principal); M48.061 Spinal stenosis, lumbar region without neurogenic claudication
CPT/HCPCS: 72148

== ENCOUNTER 2022-06-14 10:55 | Outpatient (CLI) | payer BC ==
[~2022-06-14 10:55] MED LIST: Iopamidol-370 76% 500 ML 1 ML ONE
== END 2022-06-14 10:56 | disposition home or self-care (01) ==
LOC: BICCT 10:55
PROVIDERS: ATTEND Family Medicine
DX: R22.42 Localized swelling, mass and lump, left lower limb (principal); M21.852 Other specified acquired deformities of left thigh; M21.851 Other specified acquired deformities of right thigh; M25.852 Other specified joint disorders, left hip
CPT/HCPCS: 72193; 82565; Q9967